=== PATIENT | female | born 1995 | race Two or more races ===

== ENCOUNTER 2021-11-18 07:36 | Inpatient (IN) | payer OTHER ==
[~2021-11-18] VITALS: Ht 167.6 cm; Wt 94.3 kg
[2021-11-18] MEDS ORDERED: PRENATAL TABLE1 EAC1 (09:30)
== END 2021-11-20 13:33 | disposition home or self-care (01) | DRG 807 ==
LOC: OB/GYN 07:36 → LDR 07:36 → OB/GYN 19:41
PROVIDERS: ADMIT Obstetrics & Gynecology; ATTEND Obstetrics & Gynecology
PROC: 10E0XZZ Delivery of Products of Conception, External Approach (ICD-10-PCS; principal; 2021-11-18)
PROC: 4A1HXCZ Monitoring of Products of Conception, Cardiac Rate, External Approach (ICD-10-PCS; 2021-11-18)
DX: O80 Encounter for full-term uncomplicated delivery (principal); Z37.0 Single live birth; Z3A.40 40 weeks gestation of pregnancy; Z20.822 Contact with and (suspected) exposure to COVID-19